=== PATIENT | female | born 1960 | race Caucasian/White ===

== ENCOUNTER 2018-07-24 18:01 | Inpatient (IN) | payer OTHER ==
[~2018-07-24] VITALS: Ht 154.9 cm; Wt 70.3 kg
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
[2018-07-24] MEDS ORDERED: NITROSTAT0.4 MG SL (18:09)
[2018-07-24] MEDS ORDERED: KLONOPIN0.5 MG PO (18:12)
[2018-07-24] MEDS ORDERED: OMEPRAZOLE D/R20 MG PO (18:13)
[2018-07-24] MEDS ORDERED: LISINOPRIL40 MG PO (18:14)
[2018-07-24] MEDS ORDERED: GEODON80 MG PO (18:17)
[2018-07-24] MEDS ORDERED: Meclizine25 MG PO (18:18)
[2018-07-24] MEDS ORDERED: PROZAC20 MG PO (18:18)
[2018-07-24] MEDS ORDERED: BREO ELLIPTA 21 EACH INH (18:19)
[2018-07-24] MEDS ORDERED: LIPITOR40 MG PO (18:19)
[2018-07-24] MEDS ORDERED: RESTORIL30 M1 PO (18:20)
[2018-07-24 19:34] VITALS: BP 109/53
[2018-07-24 19:42] VITALS: BP 109/53
[2018-07-24 20:50] VITALS: BP 109/53
[2018-07-25 07:30] LABS: ALBUMIN 3.5 gm/dl (3.1-4.5); BUN 11 mg/dl (7-24); CHLORIDE 109 mmol/L (98-107); CHOLESTEROL 288 mg/dL (<200); SODIUM 142 mmol/L (136-145)
[2018-07-25 07:42] LABS: ALKALINE PHOSPHATASE 117 U/L (45-117); CREATININE 0.97 mg/dL (0.55-1.02); HDL CHOLESTEROL 35 mg/dl (40-60); LDL CHOLESTEROL 204 mg/dL (9-159); SGOT/AST 17 IU/L (3-35); SGPT/ALT 17 U/L (12-78); TOTAL PROTEIN 7.2 gm/dL (6.4-8.2); TRIGLYCERIDES 245 mg/dl (<150); VLDL CHOLESTEROL 49 mg/dL (6-40)
[2018-07-25 08:23] VITALS: BP 124/74
[2018-07-25 08:27] LABS: VITAMIN D, 25-HYDROXY 17.9 ng/mL (30-100)
[2018-07-25 19:35] VITALS: BP 101/66
[2018-07-26 07:25] VITALS: BP 117/82
[2018-07-26] MEDS ORDERED: MIRTAZAPINE15 M2 PO (10:06)
[2018-07-26] MEDS ORDERED: LATU40TA PO (10:06)
== END 2018-07-26 13:37 | disposition home or self-care (01) | DRG 885 ==
LOC: 3N 18:01
PROVIDERS: Psychiatry & Neurology Psychiatry
DX: F33.3 Major depressive disorder, recurrent, severe with psychotic symptoms (principal); F41.9 Anxiety disorder, unspecified; I10 Essential (primary) hypertension; K21.9 Gastro-esophageal reflux disease without esophagitis; E78.5 Hyperlipidemia, unspecified; E66.3 Overweight; M81.0 Age-related osteoporosis without current pathological fracture; M41.9 Scoliosis, unspecified; F17.210 Nicotine dependence, cigarettes, uncomplicated; E55.9 Vitamin D deficiency, unspecified; R42 Dizziness and giddiness; M19.90 Unspecified osteoarthritis, unspecified site; J43.9 Emphysema, unspecified; Z71.6 Tobacco abuse counseling; Z68.29 Body mass index [BMI] 29.0-29.9, adult; Z88.6 Allergy status to analgesic agent; Z88.5 Allergy status to narcotic agent; Z88.2 Allergy status to sulfonamides; Z79.899 Other long term (current) drug therapy